=== PATIENT | female | born 1990 | race Caucasian/White ===

== ENCOUNTER 2016-09-13 17:55 | Emergency (ER) | payer OTHER ==
[~2016-09-13] VITALS: Ht 167.6 cm; Wt 75.6 kg
[~2016-09-13 17:55] MED LIST: MOTRIN600 MG PO; ULTRAM50 MG PO; no home meds
[2016-09-13 20:31] LABS: EOSINOPHIL (%) 2.8 % (0-5); EOSINOPHIL COUNT 0.4 K/uL (0-0.3); HEMATOCRIT 37.9 % (36.0-46.0); IMMATURE GRANULOCYTE (%) 0.2 % (0.0-0.7); IMMATURE GRANULOCYTE COUNT 0.3 K/uL; LYMPHOCYTE COUNT 2.5 K/uL (1.0-2.8); MCH 31.6 PG (29.0-34.0); MCHC 35.1 G/DL (30.0-36.0); MEAN PLAT.VOLUME 9.8 uM^3 (9.5-12.4); MONOCYTE (%) 9.5 % (3-12); MONOCYTE COUNT 1.2 K/uL (0-0.8); NEUTROPHIL (%) 66.9 % (45-76); NEUTROPHIL COUNT 8.3 K/uL (1.8-6.4); PLATELET COUNT 290 K/uL (156-360); RBC DIS.WIDTH-CV 11.7 % (11.8-14.6); RBC DIS.WIDTH-SD 37.5 % (39-53); RED BLOOD COUNT 4.21 M/uL (3.80-5.20); WHITE BLOOD COUNT 12.4 K/uL (4.1-10.2)
[2016-09-13 20:39] LABS: CHLORIDE 107 mEq/L (99-109); SODIUM 140 mEq/L (136-147)
[2016-09-13 20:41] LABS: GLUCOSE 91 mg/dL (70-99)
[2016-09-13 20:42] LABS: ANION GAP 8 MEQ/L (2-14)
[2016-09-13 20:43] LABS: TOTAL BILIRUBIN 1.1 mg/dL (0.0-1.0)
[2016-09-13 20:44] LABS: SERUM ETHYL ALCOHOL < 10 mg/dL
[2016-09-13 20:45] LABS: ALKALINE PHOSPHATASE 58 IU/L (3-129); GFR ESTIMATE (CALCULATED) > 59 mL/min/
[2016-09-13 20:46] VITALS: BP 126/89
[2016-09-13 20:46] LABS: UREA NITROGEN (BUN) 8 mg/dL (9-23)
[2016-09-14] MEDS ORDERED: ADDERALL10 MG PO ×2 (16:28→16:29)
[2016-09-14] MEDS ORDERED: ESCITALOPRAM OX10 MG PO (16:28)
[2016-09-14] MEDS ORDERED: CLONAZEPAM0.5 MG PO (16:29)
[2016-09-14] MEDS ORDERED: MEDROXYPRO150 MG/1 M IM (16:29)
== END 2016-09-13 20:55 | disposition home or self-care (01) ==
LOC: EME 17:55
PROVIDERS: Emergency Medicine
DX: F32.9 Major depressive disorder, single episode, unspecified (principal); F31.9 Bipolar disorder, unspecified; F41.1 Generalized anxiety disorder; F17.200 Nicotine dependence, unspecified, uncomplicated; Z71.6 Tobacco abuse counseling
CPT/HCPCS: 80053; 85025; 90839; 99281; 99285; G0480

== ENCOUNTER 2016-09-14 12:28 | Inpatient (IN) | payer OTHER ==
[~2016-09-14] VITALS: Ht 167.6 cm; Wt 75.0 kg
[2016-09-14 14:04] LABS: AMPHETAMINE PRESUMPTIVE POSITIVE (500 ng/mL); BARBITURATES NEGATIVE (200 ng/mL); BENZODIAZEPINES PRESUMPTIVE POSITIVE (150 ng/mL); COCAINE PRESUMPTIVE POSITIVE (150 ng/mL); INTERNAL CONTROLS VALID? YES; METHADONE NEGATIVE (200 ng/mL); METHAMPHETAMINE NEGATIVE (500 ng/mL); OPIATES (MORPHINE) NEGATIVE (100 ng/mL); OXYCODONE NEGATIVE (100 ng/mL); PHENCYCLIDINE NEGATIVE (25 ng/mL); PROPOXYPHENE NEGATIVE (300 ng/mL); THC CANNABINOIDS PRESUMPTIVE POSITIVE (50 ng/mL); TRICYCLIC ANTIDEPRESSANTS NEGATIVE (300 ng/mL)
[2016-09-14 14:05] LABS: ADD MEDTOX COMMENT Y
[2016-09-14 14:10] LABS: HEMATOCRIT 39.1 % (36.0-46.0); MCH 31.6 PG (29.0-34.0); MCHC 34.8 G/DL (30.0-36.0); MCV 90.9 FL (83-99); MEAN PLAT.VOLUME 9.8 uM^3 (9.5-12.4); PLATELET COUNT 299 K/uL (156-360); RBC DIS.WIDTH-CV 12.1 % (11.8-14.6); RBC DIS.WIDTH-SD 39.4 % (39-53); WHITE BLOOD COUNT 10.6 K/uL (4.1-10.2)
[2016-09-14 14:21] LABS: CHLORIDE 110 mEq/L (99-109); SODIUM 141 mEq/L (136-147)
[2016-09-14 14:23] LABS: GLUCOSE 123 mg/dL (70-99)
[2016-09-14 14:24] LABS: ANION GAP 8 MEQ/L (2-14)
[2016-09-14 14:26] LABS: SERUM ETHYL ALCOHOL < 10 mg/dL
[2016-09-14 14:27] LABS: GFR ESTIMATE (CALCULATED) > 59 mL/min/
[2016-09-14 14:28] LABS: UREA NITROGEN (BUN) 12 mg/dL (9-23)
[2016-09-14 14:36] LABS: QUANTITATIVE HCG < 4.0 MIU/ML
[2016-09-14] MEDS ORDERED: ESCITALOPRAM OX10 MG PO (16:28)
[2016-09-14] MEDS ORDERED: ADDERALL10 MG PO ×2 (16:28→16:29)
[2016-09-14] MEDS ORDERED: CLONAZEPAM0.5 MG PO (16:29)
[2016-09-14] MEDS ORDERED: MEDROXYPRO150 MG/1 M IM (16:29)
[2016-09-14 17:20] VITALS: BP 115/73
[2016-09-14 18:36] LABS: BENZODIAZEPINES QUANT VALUE 0 NG/ML
[2016-09-14 18:39] LABS: BENZODIAZEPINES, URINE SCREEN Negative (200 ng/mL)
[2016-09-15 08:00] VITALS: BP 113/61
[2016-09-15 15:24] VITALS: BP 115/67
[2016-09-16 07:28] VITALS: BP 93/54
[2016-09-16 15:38] VITALS: BP 102/59
[2016-09-17 07:52] VITALS: BP 117/58
[2016-09-17 15:30] VITALS: BP 113/64
[2016-09-18 07:43] VITALS: BP 115/55
[2016-09-18 16:08] VITALS: BP 107/49
[2016-09-19 07:57] VITALS: BP 103/55
[2016-09-19] MEDS ORDERED: DEPAKOTE ER250 MG PO (10:39)
[2016-09-19] MEDS ORDERED: ESCITALOPRAM OX10 MG PO (10:39)
[2016-09-19] MEDS ORDERED: ATARAX,VISTARIL25 MG PO (14:32)
== END 2016-09-19 15:00 | disposition home or self-care (01) | DRG 885 ==
LOC: EME 12:28 → EDOF 14:04 → 1WEST 14:04 → EDOF 14:27 → 1WEST 17:03
PROVIDERS: Emergency Medicine
DX: F31.30 Bipolar disorder, current episode depressed, mild or moderate severity, unspecified (principal); R45.851 Suicidal ideations; F12.10 Cannabis abuse, uncomplicated; F15.10 Other stimulant abuse, uncomplicated; F10.10 Alcohol abuse, uncomplicated; F17.210 Nicotine dependence, cigarettes, uncomplicated
CPT/HCPCS: 80048; 80164; 84702; 84999; 85027; 90837; 99281; 99285; G0480; Q0177

== ENCOUNTER 2018-01-14 16:42 | Inpatient (IN) | payer OTHER ==
[~2018-01-14] VITALS: Ht 165.1 cm; Wt 86.0 kg
[~2018-01-14 16:42] MED LIST changes: +ADDERALL10 MG PO; +ATARAX,VISTARIL25 MG PO; +CLONAZEPAM0.5 MG PO; +DEPAKOTE ER250 MG PO; +ESCITALOPRAM OX10 MG PO; +MEDROXYPRO150 MG/1 M IM
[2018-01-14 19:30] LABS: HEMATOCRIT 38.5 % (36.0-46.0); HEMOGLOBIN 13.8 G/DL (11.9-15.5); MCH 31.7 PG (29.0-34.0); MCHC 35.8 G/DL (30.0-36.0); MCV 88.3 FL (83-99); PLATELET COUNT 289 K/uL (156-360); RBC DIS.WIDTH-SD 38.8 % (39-53); RED BLOOD COUNT 4.36 M/uL (3.80-5.20); WHITE BLOOD COUNT 10.9 K/uL (4.1-10.2)
[2018-01-14 19:44] LABS: CHLORIDE 108 mEq/L (99-109); POTASSIUM 3.8 mEq/L (3.7-5.4); SODIUM 140 mEq/L (136-147)
[2018-01-14 19:46] LABS: GLUCOSE 79 mg/dL (70-99)
[2018-01-14 19:49] LABS: SERUM ETHYL ALCOHOL < 10 mg/dL
[2018-01-14 19:50] LABS: CREATININE 0.8 mg/dL (0.6-1.3); GFR ESTIMATE (CALCULATED) > 59 mL/min/
[2018-01-14 19:51] LABS: UREA NITROGEN (BUN) 9 mg/dL (9-23)
[2018-01-14 19:58] LABS: QUANTITATIVE HCG < 4.0 MIU/ML
[2018-01-14 20:06] LABS: AMPHETAMINE PRESUMPTIVE POSITIVE (500 ng/mL); BARBITURATES NEGATIVE (200 ng/mL); BENZODIAZEPINES NEGATIVE (150 ng/mL); BUPRENORPHINE NEGATIVE (10 ng/mL); COCAINE NEGATIVE (150 ng/mL); METHADONE NEGATIVE (200 ng/mL); METHAMPHETAMINE NEGATIVE (500 ng/mL); OPIATES (MORPHINE) NEGATIVE (100 ng/mL); OXYCODONE NEGATIVE (100 ng/mL); PHENCYCLIDINE NEGATIVE (25 ng/mL); PROPOXYPHENE NEGATIVE (300 ng/mL); THC CANNABINOIDS PRESUMPTIVE POSITIVE (50 ng/mL); TRICYCLIC ANTIDEPRESSANTS NEGATIVE (300 ng/mL)
[2018-01-15] MEDS ORDERED: LEXAPRO20 MG PO (00:32)
[2018-01-15] MEDS ORDERED: ADDERALL15 MG PO (00:33)
[2018-01-15] MEDS ORDERED: FLUVOXAMINE MAL25 MG PO (00:35)
[2018-01-15 01:07] VITALS: BP 102/59
[2018-01-15 17:03] VITALS: BP 126/73
[2018-01-16 07:42] VITALS: BP 111/69
[2018-01-16 14:56] VITALS: BP 125/72
[2018-01-17 07:33] VITALS: BP 99/55
[2018-01-17 15:13] VITALS: BP 105/53
[2018-01-18 07:50] VITALS: BP 99/53
[2018-01-18 12:03] VITALS: BP 106/51
[2018-01-18 16:22] VITALS: BP 97/53
[2018-01-19 07:34] VITALS: BP 103/56
[2018-01-19 16:10] VITALS: BP 93/53
[2018-01-20 07:42] VITALS: BP 97/51
[2018-01-20 16:27] VITALS: BP 104/51
[2018-01-21 08:00] VITALS: BP 110/66
[2018-01-21 16:13] VITALS: BP 110/67
[2018-01-22 07:51] VITALS: BP 116/71
[2018-01-22] MEDS ORDERED: LITHIUM CARBON300 M2 PO (08:41)
[2018-01-22] MEDS ORDERED: OLANZAPINE10 MG PO (08:41)
== END 2018-01-22 10:35 | disposition home or self-care (01) | DRG 885 ==
LOC: EME 16:42 → EDOF 22:11 → ENRESERV 23:24 → EDOF 01-15 00:21 → 1WEST 01-15 00:24
DX: F31.62 Bipolar disorder, current episode mixed, moderate (principal); F12.90 Cannabis use, unspecified, uncomplicated; Z91.14 Patient's other noncompliance with medication regimen
CPT/HCPCS: 80048; 80178; 84702; 84999; 85027; 90839; 97150 GO; 97165 GO; 99281; 99284; G0480; Q0177